=== PATIENT | female | born 1955 | race Caucasian/White ===

== ENCOUNTER 2021-11-27 19:07 | Inpatient (IN) ==
[2021-11-27] MEDS ORDERED: Isovue-370 500 ML BOTTLE IVP ONE (19:34)
[2021-11-27] MEDS ORDERED: *HR* Heparin 5,000 UNIT/ML VIAL IVP ONE (20:29)
[2021-11-27] MEDS ORDERED: *HR* Heparin 5,000 UNIT/ML VIAL IVP PRN ×2 (20:29)
[2021-11-27] MEDS ORDERED: Valproic Acid 250 MG CAPSULE PO STA (21:42)
[2021-11-27] MEDS: Heparin 25,000UNIT/250ML 1/2NS 25,000 UNIT/250 ML IV.SOLN IVC SCH (21:43)
[2021-11-27 21:50] LABS: Hematocrit 48.3 % (35.3-44.9); Hemoglobin 15.8 g/dL (11.5-15.4); Mean Corpuscular HGB Conc 32.7 g/dL (31.6-35.5); Mean Corpuscular Hemoglobin 30.9 pg (28.0-33.3); Mean Corpuscular Volume 94.3 fL (83.0-100.0); Mean Platelet Volume 11.1 fL (9.4-12.4); Platelet Count 206 K/mcL (140-400); Red Blood Count 5.12 M/mcL (3.82-4.97); Red Cell Distribution Width 13.5 % (11.5-14.5); White Blood Count 9.4 K/mcL (4.3-11.1)
[2021-11-27 21:59] LABS: Heparin anti-factor XA UFH < 0.04 IU/mL (0.30-0.70)
[2021-11-27 22:00] LABS: INR 1.1; Prothrombin Time 12.4 Seconds (9.4-12.1)
[2021-11-28] MEDS ORDERED: Ondansetron 4 MG/2 ML VIAL IVP PRN (08:56)
[2021-11-28] MEDS ORDERED: Naloxone 0.4 MG/ML INJ IVP PRN (08:56)
[2021-11-28] MEDS ORDERED: Perflutren Lipid Microsphere 1.3 ML in 0.9 % Sodium Chloride 8.7 ML IVP PRN (10:32)
[2021-11-28] MEDS ORDERED: Melatonin 3 MG TABLET PO PRN (21:00)
[2021-11-28] MEDS: Heparin 25,000UNIT/250ML 1/2NS 25,000 UNIT/250 ML IV.SOLN IVC SCH (21:19)
[2021-11-28] MEDS: Valproic Acid 250 MG CAPSULE PO SCH (21:23)
[2021-11-29 01:22] LABS: Basophils # 0.1 K/mcL (0.0-0.2); Basophils % 1.1 %; Eosinophils # 0.1 K/mcL (0.0-0.6); Eosinophils % 0.8 %; Hematocrit 43.2 % (35.3-44.9); Immature Granulocytes % 0.4 % (0-4); Lymphocytes % 39.9 %; Mean Corpuscular HGB Conc 32.6 g/dL (31.6-35.5); Mean Corpuscular Hemoglobin 30.9 pg (28.0-33.3); Mean Corpuscular Volume 94.5 fL (83.0-100.0); Mean Platelet Volume 11.1 fL (9.4-12.4); Monocytes # 0.9 K/mcL (0.0-1.3); Monocytes % 11.6 %; Neutrophils # 3.5 K/mcL (1.6-8.9); Platelet Count 204 K/mcL (140-400); Red Blood Count 4.57 M/mcL (3.82-4.97); Red Cell Distribution Width 13.5 % (11.5-14.5); Segmented Neutrophils % 46.2 %; White Blood Count 7.5 K/mcL (4.3-11.1)
[2021-11-29 01:23] LABS: Hemoglobin 14.1 g/dL (11.5-15.4)
[2021-11-29 01:40] LABS: BUN/Creatinine Ratio 27 (6-26); Blood Urea Nitrogen 16 mg/dL (8-23); Calcium 8.8 mg/dL (8.6-10.3); Carbon Dioxide 21 mEq/L (23-29); Chloride 107 mEq/L (98-107); Glucose 95 mg/dL (70-105); Magnesium 1.9 mg/dL (1.6-2.6); Osmolality,Calculated 291 (280-300); Sodium 140 mEq/L (136-145); eGFR For African Americans > 60 (> 60); eGFR For Non-African Americans > 60 (> 60)
[2021-11-29] MEDS: Valproic Acid 250 MG CAPSULE PO SCH ×2 (08:24→20:21)
[2021-11-29] MEDS: Heparin 25,000UNIT/250ML 1/2NS 25,000 UNIT/250 ML IV.SOLN IVC SCH (20:56)
[2021-11-30] MEDS: Valproic Acid 250 MG CAPSULE PO SCH ×2 (08:33→20:16)
[2021-11-30] MEDS: Heparin 25,000UNIT/250ML 1/2NS 25,000 UNIT/250 ML IV.SOLN IVC SCH (20:54)
[2021-12-01] MEDS: Heparin 25,000UNIT/250ML 1/2NS 25,000 UNIT/250 ML IV.SOLN IVC SCH (06:57)
[2021-12-01] MEDS: Valproic Acid 250 MG CAPSULE PO SCH (08:10)
[2021-12-01 12:21] VITALS: TEMP 97.8
[2021-12-01] MEDS ORDERED: Norepinephrine 4 MG/254 ML IV.SOLN IVC SCH (15:15)
[2021-12-01] MEDS ORDERED: 0.9 % Sodium Chloride 1,000 ML ONE ×2 (15:15→15:26)
[2021-12-01] MEDS ORDERED: FentaNYL (PF) 1,000 MCG/100 ML IV.SOLN IVC SCH (15:30)
[2021-12-01] MEDS ORDERED: Midazolam HCl 50 MG/50 ML IV.SOLN IVC SCH (15:30)
[2021-12-01 15:31] VITALS: BP 140/66; PULSE 126
[2021-12-01 16:02] VITALS: O2SAT 88
== END 2021-12-01 15:49 | disposition expired | DRG 176 ==
LOC: EMEROOARM 19:07 → 2ANU 11-28 09:10 → ICNU 12-01 15:08
PROVIDERS: ADMIT Hospitalist; ATTEND Hospitalist